=== PATIENT | female | born 1935 | race Caucasian/White ===

== ENCOUNTER 2018-06-05 01:00 | Inpatient (IN) | payer OTHER, MEDICARE ==
[~2018-06-05] VITALS: Ht 157.5 cm; Wt 77.6 kg
[~2018-06-05 01:00] MED LIST: ASPIRIN EC325 M2 PO; COLACE100 M1 PO; COUMADIN2 M1 PO; COUMADIN5 M2 PO; CYMBALTA60 M1 PO; DILAUDID2 M1 PO; ELIQUIS5 M1 PO; FLONASE ALLERG9.9 ML; LASIX20 M1 PO; LEVOXYL75 MCG PO; LISINOPRIL20 M1 PO; LOVENOX40 MG/0.1 SC; MIRALAX17 G1 PO; MS CONTIN15 M2 PO; OMEPRAZOLE20 M2 PO; PROAIR HFA8.5 GM INH; TRAMADOL HCL50 M1 PO; VITAMIN D32000 UNIT PO; ZYRTEC10 M3 PO
--- NOTE | 2018-06-05 12:38 | Admission Core Measures ---
Acute Coronary Syndrome (CM) ACS Core Measures Acute Coronary Syndrome Diagnosis No Congestive Heart Failure (NEW) CHF Core Measures Congestive Heart Failure Diagnosis No Cerebrovascular Accident CVA Core Measures CVA/TIA Diagnosis No Venous Thromboembolism VTE Core Reddy (View Protocol) VTE Risk Factors Surgery No Mechanical VTE Prophylaxis d/t N/A MechProphylax Ordered No VTE Pharm Prophylaxis d/t NA PharmProphylax ordered Problem List As ranked by this Provider includes Assessment & Plan 1. Total knee replacement status HOME MEDS Home Med List Albuterol Sulfate (Proair Hfa) 8.5 GM HFA.AER.AD 2 PUF INH PRN ALLERGIES ( Reported) Apixaban (Eliquis) 5 MG TABLET 1 TAB PO BID ANTICOAG (Reported) Cetirizine HCl (Zyrtec) 10 MG TABLET 1 TAB PO DAILY SEASONAL ALLERGIES ( Reported) Levothyroxine Sodium (Levoxyl) 75 MCG TABLET 1 TAB PO DAILY THYROID (Reported ) Lisinopril 20 MG TABLET 1 TAB PO DAILY HTN (Reported) Omeprazole 20 MG CAPSULE.DR 1 CAP PO DAILY GI PROTECTION (Reported) Tramadol HCl 50 MG TABLET 1 TAB PO Q6P PRN PAIN (Reported)
--- NOTE | 2018-06-05 12:42 | Patient Discharge Instructions ---
Discharge Instructions General Discharge Information You were seen/treated for: DEGENERATIVE JOINT DISEASE You had these procedures: TOTAL KNEE REPLACEMENT (06/05/18) Watch for these problems: FEVER>101.3, INCREASED PAIN, REDNESS/SWELLING/DRAINAGE, DIZZINESS, SHORTNESS OF BREATH, CHEST PAINS Other wound care: SEE PRE-PRINTED INSTRUCTIONS Special Instructions: Follow-up with Dr. Willis in 6 weeks. Call the office with any concerns of fever greater than 101.5. Large amounts of discharge or drainage from the wound or inability to bear weight on your operative side. The visiting nurse will remove your sutures/fabiano in approximately 2 weeks' time You may weight-bear as tolerated. Activity as tolerated. Range of motion as tolerated. Do not put pillows behind the knee, use a pillow under the heel to ensure your are in full knee extension. Keep the dressing dry as possible, you may shower with the dressing in place however, do not take a bath or submerge the wound in water as this will increase your chance of infection. Change the dressings after the shower. You may use dry gauze and tape or large Band-Aids Do not apply any ointments to the wound. You have a blood clot in the left leg, take Eliquis 5 mg twice per day and follow-up with vascular surgery (DR FOSTER) within 2 weeks. Take pain medication as directed. Apply ice as needed for 20 minutes every hour for the first few days. Please take Colace and/or MiraLAX [id number] to avoid constipation while you're on narcotic pain medication. Diet Continue normal diet: Yes Recommended Diet: Regular Activity Full Activity/No Limits: No Activity Self Limited: Yes Activity Limited to: Weight bear as tolerated Other activity limits: ROLLING WALKER ASSISTANCE Acute Coronary Syndrome Inclusion Criteria At DC or during hospital stay patient has or had the following: ACS DIAGNOSIS No Discharge Core Measures Meds if any: Prescribed or Continued at Discharge Meds if any: NOT Prescribed or Continued at Discharge Congestive Heart Failure Inclusion Criteria At DC or during hospital stay patient has or had the following: CHF DIAGNOSIS No Discharge Core Measures Meds if any: Prescribed or Continued at Discharge Meds if any: NOT Prescribed or Continued at Discharge Cerebrovascular accident Inclusion Criteria At DC or during hospital stay patient has or had the following: CVA/TIA Diagnosis No Discharge Core Measures Meds if any: Prescribed or Continued at Discharge Meds if any: NOT Prescribed or Continued at Discharge Venous thromboembolism Inclusion Criteria VTE Diagnosis Yes VTE Type Deep Venous Thrombosis VTE Confirmed by (Test) DUPLEX SCAN LOWER EXT Discharge Core Measures - Per Current guidelines, there needs to be overlap - treatment for the first 5 days of Warfarin therapy. - If discharged on Warfarin prior to 5 days of - overlap therapy, the patient will need to be - assessed for post discharge needs including - *Post discharge parental anticoagulation - *Warfarin and/or parental anticoagulation education - *Follow up date to check INR post discharge At least 5 days overlap therapy as Inpatient No Why was Parental Med stopped Other Anticoagulant given Meds if any: Prescribed or Continued at Discharge Warfarin No Note: Overlap Therapy is Warfarin and Anticoagulant Meds if any: NOT Prescribed or Continued at Discharge No Warfarin d/t Prescribed other Anticoag No Overlap Therapy d/t Prescribed other Anticoag
--- NOTE | 2018-06-05 12:46 | Surgical Discharge Summary ---
Visit Information Visit Dates Admission Date: 06/05/18 Discharge Date: 06/10/18 History of Present Illness Chief Complaint: KNEE PAIN, DEGENERATIVE JOINT DISEASE Medical History History of MRSA: No History of VRE: No History of CDIFF: No Pneumonia Vaccine: 08/21/15 Surgical History Pertinent Surgical History: REFER TO H&P Psychosocial History Who Do You Live With? Spouse Services at Home: None What is Your Primary Language? Yakut Review of Systems: SEE [facility] Hospital Course Course Attending Physician: Prabhu Willis MD Primary Care Physician: Preethi Aviles MD Hospital Course: Electively scheduled left total knee replacement on 06/05/18 by . Standard post-operative care routine initiated. Pain control transitioned from iv to oral medication as able. Seen and evaluated by PT starting on post-op day# 1. Eliquis resumed at 2.5mg twice daily post-op. A venous doppler ultrasound was obstained of her left lower leg on 06/09/18 due to swelling, which showed a duplicated left femoral vein, and one of left femoral veins as well as the popliteal vein showed nonocclusive thrombus extending between the proximal thigh to the level of the calf. As the patient has a history of dvt, for which she was taking eliquis 5mg BID as an outpatient, her dose was increased back to 5mg BID upon discovery of this dvt on 06/09/18. Patient cleared physical therapy and her pain was controlled, she was discharged home on 06/10/18 with [facility] services Complications: None Allergies: Coded Allergies: rofecoxib (From VIOXX) (FACIAL EDEMA 06/02/18) tree and shrub pollen (TRIGGERS ASTHMA, HEADACHES, SNEEZING 06/02/18) Significant Procedures: EXAM TYPE: US - US-UNILATERAL VENOUS DOPPLER EXAMINATION: US TRIPLEX LOWER EXTREMITY, LEFT CLINICAL INFORMATION: 82-year-old female presented with left lower leg swelling. Suspected DVT. COMPARISON: Right lower extremity deep venous Doppler study done on 03/11/2016. TECHNIQUE: Color-flow triplex imaging with spectral analysis and compression Doppler were performed on the lower extremity. 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 One of the duplicated system shows nonocclusive thrombus extending from the level of the proximal thigh and extending into the popliteal vein. The second duplicated system involving the left femoral vein is widely patent. The left common femoral vein is also widely patent. The calf veins are patent. There is no Davis's cyst. IMPRESSION: 1. Duplicated left femoral vein. One of the duplex left femoral vein as well as the popliteal vein show nonocclusive thrombus extending between the proximal thigh to the level of the calf. 2. The remainder of the duplicated left femoral vein, the common femoral vein and the calf veins are patent. This critical result was discussed with LJ Rodas at 10:38 AM on 06/09/2018 and it was ascertained that the content and urgency of the report was understood at the time of direct communication. Disposition Summary Disposition Principal Diagnosis: Degenerative joint disease Additional Diagnosis: post-op left leg dvt, nonocclusive thrombus extending between the proximal thigh to the level of the calf Discharge Disposition: home health services Discharge Instructions General Discharge Information Code Status: Full Code Patient's Diet: regular diet, as tolerated Patient's Activity: weight bearing as tolerated. rolling walker assistance. Follow-Up Instructions/Appts: follow up with in 6 weeks continue eliquis 5mg BID for ongoing dvt treatment call to schedule vascular surgery follow up Medications at Discharge Discharge Medications: Continue taking these medications: Albuterol Sulfate (Proair Hfa) 8.5 GM HFA.AER.AD 2 Puff Inhale through mouth as needed for ALLERGIES Comments: DID NOT RECEIVE WHILE IN HOSPITAL Cetirizine HCl (Zyrtec) 10 MG TABLET 1 Tablet ORAL DAILY Comments: Last Taken: 03/11/16 Time: 12:00 PM Levothyroxine Sodium (Levoxyl) 75 MCG TABLET 1 Tablet ORAL DAILY Comments: Last Taken: 03/11/16 Time: 12:00 PM Tramadol HCl (Tramadol HCl) 50 MG TABLET 1 Tablet ORAL EVERY SIX HOURS NEEDED as needed for PAIN Comments: Last Taken: 03/11/16 Time: 2:00 PM Apixaban (Eliquis) 5 MG TABLET 1 Tablet ORAL TWICE DAILY Omeprazole (Omeprazole) 20 MG CAPSULE.DR 1 Capsule ORAL DAILY Lisinopril (Lisinopril) 20 MG TABLET 1 Tablet ORAL DAILY Fluticasone Propionate (Flonase Allergy Relief) 50 MCG/ACTUATION SPRAY.SUSP Start taking the following new medications: Docusate Sodium (Docusate Sodium) 100 MG CAPSULE 100 Milligram ORAL TWICE DAILY as needed for CONSTIPATION Qty = 30 No Refills Polyethylene Glycol 3350 (Miralax) 17 GRAM POWD.PACK 1 Packet ORAL DAILY as needed for CONSTIPATION Qty = 2 No Refills Instructions: dissolve in water Tramadol HCl (Ultram) 50 MG TABLET 1-2 Tablet ORAL Every 6-8 Hours as Needed as needed for pain control Qty = 30 No Refills Copies To: Stefan GARCIA,Preethi Mora MD,Ifeanyi
--- NOTE | 2018-06-05 16:16 | Operative Report ---
Operative/Inv Procedure Report Surgery Date: 06/05/18 Name of Procedure: Left total knee replacement Pre-Operative Diagnosis: Primary left knee DJD Post-Operative Diagnosis: Same Estimated Blood Loss: 50ml to 100ml Surgeon/Bee Worker: Alba GARCIA,Prabhu Hernandez Anesthesia: block Operative/Procedure Note Note: Description of Procedure: The patient was taken to the operating room and positively identified. After induction of spinal anesthesia and administration of appropriate pre-operative antibiotics, the patient was positioned supine on the operating room table and all bony prominences were well padded. A well-padded pneumatic tourniquet was placed on the left upper thigh. After performing a surgical timeout, the left lower extremity was prepped and draped in the usual sterile fashion. After exsanguination with Esmarch the tourniquet was inflated to 250mm of mercury. A standard medial parapatellar approach was made to the knee. This was carried down through skin and subcutaneous tissue to the level of the fascia. Meticulous hemostasis was maintained with Bovie electrocautery. The extensor mechanism and patellar retinaculum were opened sharply and the patella was everted. The infrapatellar fat was resected in order to improve exposure. Osteophytes were trimmed from the patella and femoral condyles and the patella was re-everted and tucked laterally. A medial release was performed and the cruciate ligaments were resected. The tibia was then subluxed anteriorly. Utilizing the appropriate extra-medullary guide, the proximal tibia was trimmed perpendicular to the long axis of the tibial shaft. Attention was then turned to the femur. After opening the medullary canal, the distal femoral cut was made in 6 degrees of valgus utilizing the appropriate intra-medullary guide. The extension gap was checked and found to be appropriate. The femur was then sized and the remainder of the femoral cuts were made with a size #4 4-in-1 femoral cutting guide. The flexion gap was checked and found to be symmetric and appropriate. The knee was then trialed with a size #4 femoral component, a size #4 tibial component and a size 13 mm polyethylene insert. The patella was not resurfaced due to its excellent preoperative condition. This yielded excellent range of motion, stability and patellar tracking. All trial components were removed and the knee was copiously irrigated with sterile saline. All components were cemented into place with TrialScope Simplex cement. All the components were of the [place] [employer] knee system of the above stated sizes. The knee was again irrigated after cementation. The extensor mechanism and patellar retinaculum were repaired using interrupted #1 vicryl suture. The skin was re-approximated with 2-0 vicryl and closed with fabiano. A sterile dressing was applied, the tourniquet was deflated, the patient was awakened and taken to the recovery room in satisfactory condition.
[2018-06-05 16:30] VITALS: BP 132/80
--- NOTE | 2018-06-05 18:20 | PN- Orthopedic ---
Subjective Subjective: Patient resting in room, complains of nausea and no appetite. pain controlled Review of Systems Constitutional: Denies: chills, fever, weakness. Cardiovascular: Denies: chest pain, edema, peripheral edema. Respiratory: Denies: cough, short of breath. Gastrointestinal: Denies: abdominal pain, nausea. Objective Vital Signs and I&Os Vital Signs Date Time Temp Pulse Resp B/P B/P Pulse O2 O2 Flow FiO2 Mean Ox Delivery Rate 06/05 1630 97.2 92 18 132/80 95 Nasal 2.0L Cannula 06/05 1630 95 Nasal 2.0L Cannula Physical Exam: left knee - dressings CDI, ALPS in place, calves soft bilaterally sensorty-motor intact chest -CTA symmetric heart- RRR abdomen -soft without distention Assessment/Plan Assessment/Plan postop check after left TKA nausea -zofran prn continue IVF until taking POs OOB to chair and FWB with PT eliquis for DVT proph Core Measures Venous Thromboembolism VTE Risk Factors Surgery No Mechanical VTE Prophylaxis d/t N/A MechProphylax Ordered No VTE Pharm Prophylaxis d/t NA PharmProphylax ordered
[2018-06-05 18:57] VITALS: BP 132/72
[2018-06-05 21:59] VITALS: BP 126/70
[2018-06-06 02:00] VITALS: BP 132/62
[2018-06-06 07:00] VITALS: BP 104/52
[2018-06-06 07:51] LABS: ABSOLUTE BASOPHIL COUNT 0 /CUMM (0.0-0.2); ABSOLUTE EOSINOPHIL COUNT 0 /CUMM (0.0-0.7); ABSOLUTE GRANULOCYTE CT 5.5 /CUMM (1.4-6.5); ABSOLUTE LYMPH COUNT 0.7 /CUMM (1.2-3.4); ABSOLUTE MONOCYTE COUNT 0.9 /CUMM (0.10-0.60); BASOPHIL % 0 % (0.0-2.0); EOSINOPHIL % 0 % (0-5); HEMATOCRIT 28.1 % (37-47); MEAN CORPUSCULAR HGB 31.9 PG (27.0-31.0); MEAN CORPUSCULAR HGB CONC 33.1 G/DL (33.0-37.0); MEAN CORPUSCULAR VOLUME 96.5 FL (81.0-99.0); MEAN PLATELET VOLUME 7.3 FL (7.4-10.4); PLATELET COUNT 170 /CUMM (130-400); RBC DISTRIBUTION WIDTH 12.6 % (11.5-14.5); RED BLOOD CELL CT 2.91 /CUMM (4.20-5.40); WHITE BLOOD CELL COUNT 7.1 /CUMM (4.8-10.8)
--- NOTE | 2018-06-06 08:51 | PN- Orthopedic ---
Subjective Subjective: Patient reports pain well controlled. Denies numbness, tingling, chest pain, sob or difficulty breathing. Denies ambulating with PT. Tolerating diet. Perdue in place. Objective Vital Signs and I&Os Vital Signs Date Time Temp Pulse Resp B/P B/P Pulse O2 O2 Flow FiO2 Mean Ox Delivery Rate 06/06 1026 Nasal 2.0L Cannula 06/06 0822 79 126/60 06/06 0700 97.1 67 18 104/52 95 Nasal 2.0L Cannula 06/06 0200 97.8 87 18 132/62 96 Nasal 2.0L Cannula 06/06 0000 95 Nasal 2.0L Cannula 06/05 2159 97.6 83 18 126/70 97 Nasal 2.0L Cannula 06/05 1857 97.6 96 18 132/72 94 Nasal 2.0L Cannula 06/05 1630 97.2 92 18 132/80 95 Nasal 2.0L Cannula 06/05 1630 95 Nasal 2.0L Cannula Intake & Output 06/06 1600 06/06 0800 06/06 0000 06/05 1600 06/05 0800 06/05 0000 Intake Total 1010 750 Output Total 850 450 Balance 160 300 Intake, IV 650 550 Intake, Oral 360 200 Output, Urine 850 450 Patient 171 lb Weight Physical Exam: Gen - nad with 2L O2 via nc Cardiac - S1S2 noted Lungs - CTAB Abd - soft, nontender Ext - LLE dressing c/d/i, moves all extremities, motor and sensory intact, compartment soft, alps in place, no edema or calf tenderness. Current Medications: Current Medications Sig/Orin Start time Last Medication Dose Route Stop Time Status Admin Acetaminophen 1,000 MG Q6P PRN 06/05 1245 AC 06/06 IV 0320 Acetaminophen 975 MG ONCE 06/05 0000 DC PO 06/05 2359 Albuterol Sulfate 2 PUF Q4 HRS NEEDED PRN 06/05 1630 AC 06/06 INH 0901 Apixaban 2.5 MG BID 06/06 0900 AC 06/06 PO 0822 Cefazolin Sodium 2,000 MG IQ8 06/05 2000 CAN IV 06/06 0801 Cefazolin Sodium 2 GM Q8H 06/05 2000 DC 06/06 N/A 1 UNIT IV 06/06 0429 0252 Cefazolin Sodium 2,000 MG ONCE 06/05 0000 DC IV 06/05 2359 Dextrose/Sodium 1,000 ML .[id number] 06/05 1630 DC 06/06 Chloride IV 0250 Diphenhydramine HCl 25 MG SEE ADMIN CRITERIA 06/05 1745 AC IV Docusate Sodium 100 MG BID 06/05 2100 AC 06/06 PO 0822 Hydromorphone HCl 2 MG Q4-6 PRN PRN 06/05 1630 AC 06/06 PO 0820 Hydromorphone HCl 4 MG Q4-6 PRN PRN 06/05 1630 AC PO Levothyroxine Sodium 0.075 MG DAILY AC 06/06 0700 AC 06/06 PO 0537 Lisinopril 20 MG DAILY 06/06 0900 AC 06/06 PO 0822 Loratadine 10 MG DAILY 06/06 0900 AC 06/06 PO 0822 Metoclopramide HCl 10 MG Q6P PRN 06/05 1745 AC 06/05 IV 1735 Morphine Sulfate 2 MG Q2-3 HRS NEEDED.. 06/05 1630 AC 06/06 IV 1114 Naloxone HCl 0 SEE ADMIN CRITERIA 06/05 1745 AC IV Omeprazole 20 MG DAILY AC 06/06 0700 AC 06/06 PO 0537 Ondansetron HCl 4 MG Q6P PRN 06/05 1630 AC 06/05 IV 1634 Oxycodone HCl 10 MG ONCE 06/05 0000 DC PO 06/05 2359 Polyethylene Glycol 17 GM DAILY 06/06 0900 AC 06/06 PO 0822 Results Last 48 Hours of Labs: Laboratory Tests 06/06 0656 Chemistry Sodium (137 - 145 mmol/L) 135 L Potassium (3.5 - 5.1 mmol/L) 4.5 Chloride (98 - 107 mmol/L) 102 Carbon Dioxide (22 - 30 mmol/L) 24 Anion Gap (5 - 16) 9 BUN (7 - 17 mg/dL) 21 H Creatinine (0.5 - 1.0 mg/dL) 0.9 Estimated GFR (>60 ml/min) 60 BUN/Creatinine Ratio (7 - 25 %) 23.3 Hematology CBC w Diff NO MAN DIFF REQ WBC (4.8 - 10.8 /CUMM) 7.1 RBC (4.20 - 5.40 /CUMM) 2.91 L Hgb (12.0 - 16.0 G/DL) 9.3 L Hct (37 - 47 %) 28.1 L MCV (81.0 - 99.0 FL) 96.5 MCH (27.0 - 31.0 PG) 31.9 H MCHC (33.0 - 37.0 G/DL) 33.1 RDW (11.5 - 14.5 %) 12.6 Plt Count (130 - 400 /CUMM) 170 MPV (7.4 - 10.4 FL) 7.3 L Gran % (42.2 - 75.2 %) 77.0 H Lymphocytes % (20.5 - 51.1 %) 10.2 L Monocytes % (1.7 - 9.3 %) 12.8 H Eosinophils % (0 - 5 %) 0 Basophils % (0.0 - 2.0 %) 0 Absolute Granulocytes (1.4 - 6.5 /CUMM) 5.5 Absolute Lymphocytes (1.2 - 3.4 /CUMM) 0.7 L Absolute Monocytes (0.10 - 0.60 /CUMM) 0.9 H Absolute Eosinophils (0.0 - 0.7 /CUMM) 0 Absolute Basophils (0.0 - 0.2 /CUMM) 0 Assessment/Plan Assessment/Plan 82 F POD 1 s/p L TKR, recovering well PT eval, WBAT Reg diet, d/c IVF Pain control prn DVT ppx - alps, eliquis 2.5 bid Resume eliquis 5 mg bid in 1 weeks D/c perdue Wean O2 TRC, encourage IS Dressing change tomorrow Anticipate d/c home w/ hhs tomorrow Core Measures Venous Thromboembolism VTE Risk Factors Surgery No Mechanical VTE Prophylaxis d/t N/A MechProphylax Ordered No VTE Pharm Prophylaxis d/t NA PharmProphylax ordered
[2018-06-06 15:01] VITALS: BP 108/52
[2018-06-06 22:33] VITALS: BP 130/60
[2018-06-07 06:48] VITALS: BP 140/70
--- NOTE | 2018-06-07 07:10 | PN- Orthopedic ---
Subjective Subjective: POD#2 S/P LEFT TKA mild confusion denies cp, sob, no n+v no blurred vison, carrera, dizziness perdue replaced Tuesday for post op retention has been oob with pt to chair Objective Vital Signs and I&Os Vital Signs Date Time Temp Pulse Resp B/P B/P Pulse O2 O2 Flow FiO2 Mean Ox Delivery Rate 06/07 0648 99.9 92 20 140/70 94 Room Air 06/07 0000 Nasal 2.0L Cannula 06/06 2233 99.6 85 19 130/60 96 Nasal Cannula 06/06 1501 98.0 88 18 108/52 98 Nasal Cannula 06/06 1026 Nasal 2.0L Cannula 06/06 0822 79 126/60 06/06 0800 Nasal 2.0L Cannula Intake & Output 06/07 0800 06/07 0000 06/06 1600 06/06 0800 06/06 0000 06/05 1600 Intake Total 231 012 5102 1010 750 Output Total 1200 300 575 850 450 Balance -1080 -180 505 160 300 Intake, IV 600 650 550 Intake, Oral 120 120 480 360 200 Number 0 Bowel Movements Output, Urine 1200 300 575 850 450 Patient 171 lb Weight Physical Exam: cv: rrr lungs: clear abd: soft, +bs ext: drsg changed, wound c/d/i calf tender to palp, but soft distal cms intact Assessment/Plan Assessment/Plan ortho stable mild confusion noted plan repeat labs cont oob with pt voiding trial if labs ok wean narcs Core Measures Venous Thromboembolism VTE Risk Factors Surgery No Mechanical VTE Prophylaxis d/t N/A MechProphylax Ordered No VTE Pharm Prophylaxis d/t NA PharmProphylax ordered
[2018-06-07 07:45] LABS: ABSOLUTE BASOPHIL COUNT 0 /CUMM (0.0-0.2); ABSOLUTE EOSINOPHIL COUNT 0.1 /CUMM (0.0-0.7); ABSOLUTE GRANULOCYTE CT 6.9 /CUMM (1.4-6.5); ABSOLUTE LYMPH COUNT 0.9 /CUMM (1.2-3.4); ABSOLUTE MONOCYTE COUNT 1.3 /CUMM (0.10-0.60); BASOPHIL % 0.2 % (0.0-2.0); EOSINOPHIL % 0.8 % (0-5); GRANULOCYTE % 75.8 % (42.2-75.2); HEMATOCRIT 26.3 % (37-47); MEAN CORPUSCULAR HGB 32.1 PG (27.0-31.0); MEAN CORPUSCULAR HGB CONC 33.4 G/DL (33.0-37.0); MEAN PLATELET VOLUME 7.4 FL (7.4-10.4); PLATELET COUNT 173 /CUMM (130-400); RBC DISTRIBUTION WIDTH 12.8 % (11.5-14.5); RED BLOOD CELL CT 2.74 /CUMM (4.20-5.40); WHITE BLOOD CELL COUNT 9.1 /CUMM (4.8-10.8)
[2018-06-07 14:14] VITALS: BP 154/64
[2018-06-07 22:39] VITALS: BP 110/60
[2018-06-08 06:54] VITALS: BP 130/66
--- NOTE | 2018-06-08 07:17 | PN- Orthopedic ---
Subjective Subjective: No acute overnight events. States she hasnt been able to ambulate much. Finds perdue catheter irritating. Denies chest pain, shortness of breath, difficulty breathing. Is tired but otherwise feels well. Objective Vital Signs and I&Os Vital Signs Date Time Temp Pulse Resp B/P B/P Pulse O2 O2 Flow FiO2 Mean Ox Delivery Rate 06/08 0654 97.9 88 20 130/66 94 Room Air 06/07 2239 98.3 88 19 110/60 95 Room Air 06/07 1414 98.0 94 18 154/64 96 06/07 0815 92 140/70 Intake & Output 06/08 0800 06/08 0000 06/07 1600 06/07 0800 06/07 0000 06/06 1600 Intake Total 100 320 772 642 2470 Output Total 270 553 6918 300 575 Balance -500 -650 320 -1080 -180 505 Intake, IV 20 600 Intake, Oral 100 300 120 120 480 Number 0 Bowel Movements Output, Urine 354 079 8208 300 575 Physical Exam: General: Alert and oriented x3, no acute distress Cardiac: RRR, s1s2 PUlm: CTA, non-labored repsiratory effort Abd: Non-tender, non-distended Extremities: Moves all extremities, distal sensation intact. Skin warm and well perfused. Some ecchymosis noted around surgical site. No erythema. No drainage. Bilateral calves soft and nontender. Assessment/Plan Assessment/Plan This is an 82 year old female, POD 3, s/p L TKR -DC perdue, void trial this morning -OOB, ambulate with PT, ?clearance for home -DC planning: Patient desires dc to home -Continue eliquis 2.5 bid for 5 days prior to resuming home dose -Continue current pain regimen Will discuss plan of care with Dr. Willis Core Measures Venous Thromboembolism VTE Risk Factors Surgery No Mechanical VTE Prophylaxis d/t N/A MechProphylax Ordered No VTE Pharm Prophylaxis d/t NA PharmProphylax ordered
[2018-06-08 10:51] VITALS: BP 150/76
[2018-06-08 14:49] VITALS: BP 140/60
[2018-06-08 22:25] VITALS: BP 132/64
[2018-06-09 06:46] VITALS: BP 128/65
--- NOTE | 2018-06-09 07:31 | PN- Orthopedic ---
Subjective Subjective: Patient complaining of worsening pain to left lower extremity and notes that her leg swelling has worsened as well. Denies chest pain, shorntess of breath and difficulty breathing. Denies nausea and vomitting. Is voiding. Objective Vital Signs and I&Os Vital Signs Date Time Temp Pulse Resp B/P B/P Pulse O2 O2 Flow FiO2 Mean Ox Delivery Rate 06/09 0646 98.2 75 20 128/65 97 Room Air 06/08 2225 98.7 82 20 132/64 96 06/08 1449 98.7 92 20 140/60 95 06/08 1051 99.1 92 18 150/76 97 Room Air 06/08 0804 88 130/66 Intake & Output 06/09 0800 06/09 0000 06/08 1600 06/08 0800 06/08 0000 06/07 1600 Intake Total 100 850 100 100 320 Output Total 300 500 750 Balance 100 550 -400 -650 320 Intake, IV 110 20 Intake, Oral 100 740 100 100 300 Output, Urine 300 500 750 Physical Exam: General: Alert and oriented x3, no acute distress Caridac: RRR, s1s2 Pulm: CTA, non-labored respiratory effort Abd: Non-tender, non-disteneded Extremiteis: LLE swelling, tenderness with palpation. Extensive ecchymosis noted. Calf tight left side. Foot warm, dp pulse palpable. Dressing to knee dry and intact. RLE calf non-tender to palpation. Assessment/Plan Assessment/Plan This is a an 82 year old female, pod 4, s/p L TKR. pmh signficant for pe. Has been anticoagulated post op with 2.5 eliquis for dvt ppx starting morning of pod 1. Clinical presentation today concerning for dvt vs vascular injury in the setting of extensive swelling and redness. -Ultrasound today: doppler and duplex -Pending negative results, clinical course will be as follows: oob with pt, wbat, clearance for home vs str tbd eliquis 5 bid to resume one week from date of surgery current pain regimen to continue Will discuss plan of care with Dr. Willis Core Measures Venous Thromboembolism VTE Risk Factors Surgery No Mechanical VTE Prophylaxis d/t N/A MechProphylax Ordered No VTE Pharm Prophylaxis d/t NA PharmProphylax ordered
--- NOTE | 2018-06-09 10:48 | ULTRASOUND REPORT ---
EXAMINATION: US TRIPLEX LOWER EXTREMITY, LEFT CLINICAL INFORMATION: 82-year-old female presented with left lower leg swelling. Suspected DVT. COMPARISON: Right lower extremity deep venous Doppler study done on 03/11/2016. TECHNIQUE: Color-flow triplex imaging with spectral analysis and compression Doppler were performed on the lower extremity. 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 One of the duplicated system shows nonocclusive thrombus extending from the level of the proximal thigh and extending into the popliteal vein. The second duplicated system involving the left femoral vein is widely patent. The left common femoral vein is also widely patent. The calf veins are patent. There is no Davis's cyst. IMPRESSION: 1. Duplicated left femoral vein. One of the duplex left femoral vein as well as the popliteal vein show nonocclusive thrombus extending between the proximal thigh to the level of the calf. 2. The remainder of the duplicated left femoral vein, the common femoral vein and the calf veins are patent. This critical result was discussed with LJ Rodas at 10:38 AM on 06/09/2018 and it was ascertained that the content and urgency of the report was understood at the time of direct communication.
--- NOTE | 2018-06-09 12:16 | ULTRASOUND REPORT ---
EXAMINATION: NONINVASIVE ASSESSMENT OF THE ARTERIES OF THE LEFT LOWER EXTREMITY INTERPRETING VASCULAR \T\ INTERVENTIONAL RADIOLOGIST: Alec Yanez MD CLINICAL INFORMATION: Left lower extremity swelling. TECHNIQUE: Unilateral left lower extremity duplex ultrasound was performed with velocity measurements and waveform analysis in the common femoral arteries, profunda femoris arteries, proximal mid and distal superficial femoral arteries, popliteal arteries and tibial vessels. This study was performed only at rest. COMPARISON: 9. FINDINGS: Velocities in cm/sec and phasicity as well as the presence of plaque are reported below. LEFT LEG: Common Femoral: 166 cm/s Profunda Femoris: 87.4 cm/s Proximal SFA: 200 cm/s Mid SFA: 143 cm/s Distal SFA: 135 cm/s Popliteal: 109 cm/s Anterior tibial: 103 cm/s Peroneal: 103 cm/s Posterior tibial: 20.8 cm/s Dorsalis pedis 38.7 cm/s Minimal plaque is present multiphasic flow is present throughout. IMPRESSION: There is no evidence of any hemodynamically significant lower extremity arterial disease by pressure, waveform or duplex Doppler criteria at rest. There may be a minimal area of stenosis in the SFA proximally where there is velocity acceleration up to 200 cm/s.
--- NOTE | 2018-06-09 13:03 | Cons- Vascular Surgery ---
General Information and HPI Consulting Request Date of Consult: 06/09/18 Requested By: Prabhu Willis MD Reason for Consult: LEFT LEG DVT Source of Information: DUPLEX US FROM 06/09/2018 Exam Limitations: no limitations History of Present Illness: Ms. Barba is an 82-year-old female with a past medical history of left lower extremity DVT who preoperatively was taking Eliquis 5 mg twice daily, hypertension, GERD, asthma, hypothyroidism, presents today with left thigh and leg swelling status post left total knee arthroplasty on 06/05/2018. She was doing well with physical therapy today when this morning it was noticed that she had this swelling. At that time a duplex ultrasound was ordered demonstrating a left leg DVT from the proximal thigh to the level of the calf. Allergies/Medications Allergies: Coded Allergies: rofecoxib (From VIOXX) (FACIAL EDEMA 06/02/18) tree and shrub pollen (TRIGGERS ASTHMA, HEADACHES, SNEEZING 06/02/18) Home Med List: Albuterol Sulfate (Proair Hfa) 8.5 GM HFA.AER.AD 2 PUF INH PRN ALLERGIES ( Reported) Apixaban (Eliquis) 5 MG TABLET 1 TAB PO BID ANTICOAG (Reported) Cetirizine HCl (Zyrtec) 10 MG TABLET 1 TAB PO DAILY SEASONAL ALLERGIES ( Reported) Fluticasone Propionate (Flonase Allergy Relief) 50 MCG/ACTUATION SPRAY.SUSP ALLERGIES (Reported) Levothyroxine Sodium (Levoxyl) 75 MCG TABLET 1 TAB PO DAILY THYROID (Reported ) Lisinopril 20 MG TABLET 1 TAB PO DAILY HTN (Reported) Omeprazole 20 MG CAPSULE.DR 1 CAP PO DAILY GI PROTECTION (Reported) Tramadol HCl 50 MG TABLET 1 TAB PO Q6P PRN PAIN (Reported) Past History Medical History Blood Transfusion Hx: No EENT: allergies Cardiovascular: hypertension Respiratory: pulmonary embolism Gastrointestinal: GERD Musculoskeletal: ARTHRITIS Endocrine: hyperthyroidism Surgical History Pertinent Surgical History: LEFT HIP ORIF LEFT KNEE REPLACEMENT RIGHT HIP REPLACEMENT SHOULDER SURGERY Psychosocial History Where Do You Live? Home Services at Home: None Smoking Status: Never Smoked Exam & Diagnostic Data Vital Signs and I&O Vital Signs Date Time Temp Pulse Resp B/P B/P Pulse O2 O2 Flow FiO2 Mean Ox Delivery Rate 06/09 0803 98.2 75 20 128/65 06/09 0646 98.2 75 20 128/65 97 Room Air 06/08 2225 98.7 82 20 132/64 96 06/08 1449 98.7 92 20 140/60 95 Intake & Output 06/09 1600 06/09 0800 06/09 0000 06/08 1600 06/08 0800 06/08 0000 Intake Total 225 100 850 100 100 Output Total 200 300 300 500 750 Balance -200 -75 100 550 -400 -650 Intake, IV 125 110 Intake, Oral 100 100 740 100 100 Output, Urine 200 300 300 500 750 Physical Exam General Appearance: no apparent distress Head: atraumatic Eyes: Bilateral: PERRL. Respiratory: normal breath sounds Cardiovascular: regular rate/rhythm Peripheral Pulses: 4+ tibialis posterior (R), 4+ tibialis posterior (L), 4+ dorsalis pedis (R), 4+ dorsalis pedis (L) Gastrointestinal: non-tender Extremities: no calf tenderness to palp, circumfrential thigh and calf swelling L>R, distaql cms intact Imaging Results: SERVICE DATE: 06/09/18- EXAM TYPE: US - US-UNILATERAL VENOUS DOPPLER EXAMINATION: US TRIPLEX LOWER EXTREMITY, LEFT CLINICAL INFORMATION: 82-year-old female presented with left lower leg swelling. Suspected DVT. COMPARISON: Right lower extremity deep venous Doppler study done on 03/11/2016. TECHNIQUE: Color-flow triplex imaging with spectral analysis and compression Doppler were performed on the lower extremity. 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 One of the duplicated system shows nonocclusive thrombus extending from the level of the proximal thigh and extending into the popliteal vein. The second duplicated system involving the left femoral vein is widely patent. The left common femoral vein is also widely patent. The calf veins are patent. There is no Davis's cyst. IMPRESSION: 1. Duplicated left femoral vein. One of the duplex left femoral vein as well as the popliteal vein show nonocclusive thrombus extending between the proximal thigh to the level of the calf. 2. The remainder of the duplicated left femoral vein, the common femoral vein and the calf veins are patent. This critical result was discussed with LJ Rodas at 10:38 AM on 06/09/2018 and it was ascertained that the content and urgency of the report was understood at the time of direct communication. DICTATED BY: Neha Cantu MD DATE/TIME DICTATED:07/20/18 / 1035 BODY WELDER:GENEVA DATE/TIME TRANSCRIBED:06/09/181034 Assessment/Plan Assessment/Plan Ms Barba is an 82-year-old female who is status post left total knee arthroplasty who on postop day 3 was noted to have total leg swelling left greater than the right. An ultrasound was obtained that demonstrates a DVT from the proximal thigh to the level of the calf. It is unsure the age of this DVT as she has a history of left leg DVT for which she was taking Eliquis 5 mg twice daily preoperatively. This case was discussed in detail with Dr. Ifeanyi Mora who recommended her going back on her home dose of Eliquis 5 mg twice daily since at this dosage she will be considered to be anticoagulated for DVT. Plan Eliquis 5 mg twice daily Resume physical therapy, out of bed weightbearing as tolerated left lower extremity Titrate pain medication Still planning for home DC probably in a.m. Dr. Mora, et al will do a follow-up eval of this evening. Consult Acknowledgment - Thank you for your consult request.
[2018-06-09 13:58] VITALS: BP 122/70
[2018-06-09] MEDS ORDERED: MIRALAX17 G1 PO (18:57)
[2018-06-09] MEDS ORDERED: DOCUSATE SODIU100 M3 PO (18:57)
[2018-06-09] MEDS ORDERED: ULTRAM50 M1 PO (18:57)
[2018-06-09 22:34] VITALS: BP 130/60
[2018-06-10 05:36] VITALS: BP 126/62
[2018-06-10 07:57] VITALS: BP 126/62
--- NOTE | 2018-06-10 08:18 | PN- Orthopedic ---
Subjective Subjective: No complaints, pain well controlled, no acute events overnight, no fever or flulike illness Objective Vital Signs and I&Os Vital Signs Date Time Temp Pulse Resp B/P B/P Pulse O2 O2 Flow FiO2 Mean Ox Delivery Rate 06/10 0757 98.2 82 20 126/62 06/10 0536 98.2 82 20 126/62 95 Room Air 06/09 2234 99.4 79 18 130/60 96 06/09 1358 97.7 76 20 122/70 96 Room Air Intake & Output 06/10 1600 06/10 0800 06/10 0000 06/09 1600 06/09 0800 06/09 0000 Intake Total 240 800 225 100 Output Total 300 900 300 Balance -60 -100 -75 100 Intake, IV 125 Intake, Oral 240 800 100 100 Number 0 0 Bowel Movements Output, Urine 300 900 300 Physical Exam: Well-developed well-nourished no apparent distress. HEENT: Atraumatic, extraocular motion intact Neck: Supple, no lymphadenopathy Respiratory: No respiratory distress Extremities: No edema LEFT lower extremity dressing in place, Incision line is clean dry and intact, healing well. No signs of infection. Mild joint effusion, mild to moderate swelling of the left lower extremity Range of motion is 0-45. ALPS [address] Neurovascularly intact distally Bilateral calves are supple, nontender. Neuro: Alert and oriented x3 Psych: Mood affect normal, normal memory normal judgment. Skin: Warm and dry, no rash on exposed skin Assessment/Plan Assessment/Plan Postop day #5 status post left total knee arthroplasty Stable for discharge home, pain medication as needed, to home with VNA services Nonocclusive DVT found left lower extremity, per vascular surgery, resume Eliquis 5 mg p.o. twice daily which had been initiated already and she will continue with this at home and follow-up with vascular surgery in 2 weeks. Patient understands and agrees with plan. Core Measures Venous Thromboembolism VTE Risk Factors Surgery No Mechanical VTE Prophylaxis d/t N/A MechProphylax Ordered No VTE Pharm Prophylaxis d/t NA PharmProphylax ordered
[2018-06-10] MEDS ORDERED: ULTRAM50 M1 PO (11:40)
[2018-06-10] MEDS ORDERED: DOCUSATE SODIU100 M3 PO (11:40)
== END 2018-06-10 12:06 | disposition home health service (06) | DRG 470 ==
LOC: SDA 01:00 → ENRESERV 14:58 → ENTRNSPT 15:56 → EDTRNSPTSTS 16:10 → EDTRNSPT 16:10 → 2NA 16:16 → CMPTRNSPT 16:51 → 2NA 06-08 20:17 → ENPENDDIS 06-10 09:21 → ENTRNSPT 06-10 11:30 → EDTRNSPTSTS 06-10 11:32 → EDTRNSPT 06-10 11:32 → CMPTRNSPT 06-10 11:53 → 2NA 06-10 12:06
PROVIDERS: Physician Assistant
PROC: 0SRD0J9 Replacement of Left Knee Joint with Synthetic Substitute, Cemented, Open Approach (ICD-10-PCS; principal; 2018-06-05)
PROC: 3E0T3BZ Introduction of Anesthetic Agent into Peripheral Nerves and Plexi, Percutaneous Approach (ICD-10-PCS; 2018-06-05)
DX: M17.12 Unilateral primary osteoarthritis, left knee (principal); I82.532 Chronic embolism and thrombosis of left popliteal vein; I82.512 Chronic embolism and thrombosis of left femoral vein; I10 Essential (primary) hypertension; K21.9 Gastro-esophageal reflux disease without esophagitis; J45.909 Unspecified asthma, uncomplicated; E03.9 Hypothyroidism, unspecified; Z91.048 Other nonmedicinal substance allergy status; Z86.711 Personal history of pulmonary embolism; Z96.641 Presence of right artificial hip joint; Z79.01 Long term (current) use of anticoagulants
CPT/HCPCS: 2NASP; 36415; 36592; 82436; 87086; 88305; 97110-GO; 97116-GO; 97161-GP; 97530-GO; C1713; C9290; J0131; J0690; J2405; J2765; J3490; J7042